=== PATIENT | female | born 1955 | race African-American/Black ===

== ENCOUNTER 2017-06-09 12:15 | Inpatient (IN) | payer MEDICARE, OTHER ==
[~2017-06-09] VITALS: Ht 152.4 cm; Wt 84.8 kg
[~2017-06-09 12:15] MED LIST: ADULT LOW DOSE81 MG PO; ADVAIR 500-501 EACH INH; ALBUTEROL NEB; ALBUTEROL2.5 MG/3 M INH; ALDACTONE50 MG PO; APAP W/CODEINE1 TA2 PO; AZITHROMYCIN 2250 MG PO; CALCIUM 600 +1 EAC5 PO; CARAFATE 1 GM TA1 G1 PO; CARTIA XT120 M1 PO; CHLOR-TABLET4 MG PO; CORAL CALCIUM1 EAC2 PO; CORAL CALCIUM1 EACH PO; COUMADIN 5 MG TA5 M1 PO; COUMADIN7.5 MG PO; DILTIAZEM 24HR120 M1 PO; DOXYCYCLINE 10100 M1 PO; DULERA 200 MCG/13 GM INH; ENOXAPARIN100 MG/1 M; ENOXAPARIN100 MG/1 M INJECTION; ENOXAPARIN30 MG/0.3 SQ; FLEXERIL PO; FLONASE 0.05%50 MCG INH; FLONASE INH; FORTEO SUBQ; FOSAMAX5 MG PO; FUROSEMIDE 20 M20 M1 PO; HOME MEDICATION INH; HOME MEDICATION PO; HYDROCODON-ACE1 EAC5 PO; HYDROCODON-ACE1 EAC7 PO; HYDROCODONE-AP1 EAC6 PO; IRON325 PO; JANTOVEN7.5 MG PO; K-DUR 20 MEQ T20 MEQ PO; K-DUR10 ME1 PO; KLOR-CON 10 ER10 MEQ PO; LANOXIN 0.120.125 M1 PO; LASIX 20 MG TAB20 MG PO; LOPRESSOR50 PO; MEDROL DOSPAK21 TA1 PO; MUCINEX600 MG PO; NEURONTIN 300300 M1 PO; NORCO 5-325 TA1 EACH PO; NORFLEX100 MG PO; OMEPRAZOLE20 MG PO; ORAPRED ODT15 MG PO; OSTERA TABLET1 EAC1 PO; PHENERGAN 25 MG25 M1 PO; PREDNISONE; PREDNISONE 1 MG1 M1 PO; PREDNISONE 10 M10 M1 PO; PREDNISONE 5 MG5 M1 PO; PROAIR HFA8.5 GM INH; PROTONIX40 M2 PO; PSEUDOEPHEDRINE30 MG PO; ROBAXIN500 MG PO; SALINE NASAL SP30 ML NASAL; SINGULAIR 10 MG10 M1 PO; SOTALOL80 MG PO; SUDAFED30 MG PO; SYMBICORT160 MCG/4. INH; TRACLEER PO; VENTOLIN HFA INH8 GM IH; VITAMIN B-12500 MCG PO; VITAMIN D3400 UNIT PO; VOLTAREN GEL 1100 G2 TOP; ZOFRAN ODT4 MG PO; ZYRTEC10 M2 PO; [UNRECOGNIZED DRUG - OTHER]
[2017-06-09 12:19] VITALS: BP 146/73
[2017-06-09 12:50] LABS: CREATININE 1.4 mg/dL (0.6-1.3); POTASSIUM 4.6 mmol/L (3.5-5.1)
[2017-06-09 12:51] LABS: HEMATOCRIT 45.9 % (37.0-47.0); MCH 26.4 pg (26.0-34.0); MCHC 30.6 g/dL (28.0-37.0); MCV 86.2 fL (80.0-100.0); MPV 8.8 fl. (7.2-11.1); NUCLEATED RBCS 0 /100WBC; PLATELET COUNT* 242 thou/uL (150-400); RBC 5.33 mil/uL (4.20-5.00); RDW-CV 16.2 % (10.5-14.5); WBC 6.1 thou/uL (4.0-11.0)
[2017-06-09 12:52] LABS: APTT 33.6 Seconds (25.0-31.3); PROTIME 18.9 Seconds (9.20-11.50)
[2017-06-09 13:01] LABS: ALBUMIN 3.3 g/dL (3.4-5.0); TOTAL BILIRUBIN 0.9 mg/dL (<0.1-1.0); TOTAL PROTEIN 6.2 g/dL (6.4-8.2); TROPONIN-I LEVEL 0.06 ng/mL (<0.06)
[2017-06-09 13:01] LABS: INFLUENZA B ANTIGEN None Detected (None Detect)
[2017-06-09 13:22] LABS: ABSOLUTE BASOPHILS 0.1 thou/uL (0.0-0.2); ABSOLUTE LYMPHOCYTES 0.4 thou/uL (0.8-5.3); ABSOLUTE MONOCYTES 0.8 thou/uL (0.0-1.2); ABSOLUTE NEUTROPHILS 4.8 thou/uL (1.6-8.1)
[2017-06-09 13:23] LABS: PLATELET ESTIMATE ADEQUATE; POLYCHROMASIA 1+
--- NOTE | 2017-06-09 16:39 | EKG ---
[place] [address] ELECTROCARDIOGRAM REPORT Name: YENNI WARNER Room: [place] [address] ADM IN .R.#: [id number] Admission: 06/09/17 Attend Phys: Zia Pemberton MD Discharge: Date of : 57 Report #: [id number] THIS REPORT FOR: //name// [facility] ED Test Date: 2017-06-09 Test Time: 13:21:33 Pat Name: YENNI WARNER Department: Room: [facility] Gender: F Lithographic Stripper: Tracy MCKEON : 1955 Requested By: Bobby Barajas Order Number: [id number] MD: Abraham Fiore Measurements Intervals [place] Rate: 57 P: 22 AL: 147 QRS: 76 QRSD: 72 T: 67 QT: 366 QTc: 357 Interpretive Statements Sinus rhythm Possible right atrial enlargement Repol abnrm, probable ischemia, anterior lds Compared to ECG 03/31/2017 17:22:48 Possible ischemia now present Sinus tachycardia no longer present Atrial premature complex(es) no longer present Incomplete right bundle-branch block no longer present Electronically Signed On 06-09-2017 16:39:12 SHADING PAINTER by Abraham Fiore [email or web address] <ELECTRONICALLY SIGNED> By: Abraham Fiore MD, FACC 06/09/17 1639 1321 1321 Abraham Fiore MD, FAC /EPI
[2017-06-09 17:16] VITALS: BP 139/52
[2017-06-09 17:45] VITALS: BP 108/35
--- NOTE | 2017-06-09 19:05 | NUR ---
PT ARRIVED TO ROOM 223 VIA CART.PT ON O2 @2L NC. PT UP IN ROOM WITH STEADY GAIT. ORIENTED TO ROOM,CALL LIGHT WITHIN REACH
[2017-06-09 21:00] VITALS: BP 129/66
[2017-06-10] VITALS: BP 124/59
[2017-06-10 01:08] LABS: ABSOLUTE LYMPHOCYTES 0.1 thou/uL (0.8-5.3); ABSOLUTE NEUTROPHILS 2.7 thou/uL (1.6-8.1); BASOPHILS 0.3 %; HEMATOCRIT 41.5 % (37.0-47.0); HEMOGLOBIN 12.8 gm/dL (12.0-15.0); LYMPHOCYTES 4.1 %; MCH 26.4 pg (26.0-34.0); MCHC 30.8 g/dL (28.0-37.0); MCV 85.6 fL (80.0-100.0); MONOCYTES 1.7 %; MPV 8.7 fl. (7.2-11.1); NUCLEATED RBCS 0 /100WBC; PLATELET COUNT* 193 thou/uL (150-400); POLYS 93.9 %; RBC 4.85 mil/uL (4.20-5.00); RDW-CV 16.6 % (10.5-14.5); WBC 2.9 thou/uL (4.0-11.0)
[2017-06-10 01:34] LABS: CALCIUM 8.5 mg/dL (8.5-10.1); CREATININE 1.7 mg/dL (0.6-1.3); POTASSIUM 4.6 mmol/L (3.5-5.1)
[2017-06-10 03:00] VITALS: BP 143/75
--- NOTE | 2017-06-10 06:19 | NUR ---
CONTACT PRECAUTIONS MAINTAINED, POSITIVE FOR INFLUENZA A. MUSIC ASSISTANT TRACING SINUS RHYTHM. PT HAS DENIED CHEST/ARM PAIN, NUMBNESS/TINGLING, AND SOA THROUGHOUT THE SHIFT. EKG COMPLETE AT 1910 AND 0, BOTH COMPARED TO ER EKG WITH NO CHANGE NOTED. 2L O2 IN PLACE, O2 SAT 94%. VSS. PT IS UP AD ESTEFANIA, STEADY GAIT. CALL LIGHT WITHIN REACH.
[2017-06-10 08:00] VITALS: BP 130/54
[2017-06-10 09:58] LABS: URINE BILIRUBIN NEGATIVE (Negative); URINE BLOOD 3+ (Negative); URINE CLARITY SL CLOUDY; URINE COLOR YELLOW; URINE GLUCOSE-RANDOM NEGATIVE (Negative); URINE KETONES NEGATIVE (Negative); URINE LEUKOCYTES-REFLEX NEGATIVE (Negative); URINE NITRITE-REFLEX NEGATIVE (Negative); URINE PROTEIN NEGATIVE (Negative); URINE SPECIFIC GRAVITY 1.025 (1.005-1.030); URINE UROBILINOGEN 0.2 E.U./dl (0.2-1.0)
[2017-06-10 10:03] LABS: SQUAMOUS 0-3 Few /LPF (0-3); URINE WBC-REFLEX 0-5 Rare /HPF (0-5)
[2017-06-10 10:04] LABS: AMORPHOUS URATES Few /LPF (None Seen); COARSE GRANULAR CASTS 0-3 Few /LPF (None Seen); FINE GRANULAR CASTS 0-3 Few /LPF (None Seen); HYALINE CASTS 0-3 Few /LPF (None Seen); MUCUS 4-6 Moderate strn/LPF (None Seen); URINE RBC 3-10 Few /HPF (0-2)
--- NOTE | 2017-06-10 10:35 | NUR ---
ASSUMED CARE OF PT AROUND 0800 THIS AM. PT ON DROPLET ISOLATION. REVIEWED HOME MEDICATIONS WITH PATIENT. PT ON HOME DOSE O2 AT 2L/NC. NS INFUSING PRESCRIBED. NO OTHER CONCERNS AT THIS TIME. CLWR. WCTM.
[2017-06-10 11:48] VITALS: BP 109/47
--- NOTE | 2017-06-10 14:34 | NUR ---
PT NOTED TO HAVE BRADYCARDIA IN THE 40'S ON CAR HOSTLER. REPORTED TO THIS NURSE THAT PULSE RATE LOW 30'S INTERMITTENTLY. STAT EKG OBTAINED WITH SINUS BRADYCARDIA. DR. FRYE NOTIFIED AND NEW ORDERS OBTAINED TO CHANGE METOPROLOL DOSE. NO OTHER CONCERNS AT THIS TIME. CLWR. WCTM.
[2017-06-10 15:00] LABS: INR 2.6; PROTIME 25.1 Seconds (9.20-11.50)
--- NOTE | 2017-06-10 15:48 | NUR ---
CM ASSESSMENT: Pt is A&O. Resides at home with her mom. Known to this CM from previous hospital stay. Admitted for Flu A. Independent with ADLs. Pt has a walker and cane at home that she can use if necessary. Hx of HH, but does not remember the name of the agency. No hx of SNF. Supportive family that is involved in POC. Goal is to return home once medically stable for dc. Pt does have home o2 through [facility].
[2017-06-10 15:53] VITALS: BP 115/58
--- NOTE | 2017-06-10 16:33 | EKG ---
[place] [address] ELECTROCARDIOGRAM REPORT Name: YENNI WARNER Room: [address] ADM IN M.R.#: [id number] Admission: 06/09/17 Attend Phys: Zia Pemberton MD Discharge: Date of : 57 Report #: [id number] THIS REPORT FOR: //name// [facility] Test Date: 2017-06-09 Test Time: 19:10:07 Pat Name: YENNI WARNER Department: Room: [address] Gender: F Road Contractor: REED LUCIA : 1955 Requested By: Bobby Barajas Order Number: [id number] Austyn MD: Abraham Fiore Measurements Intervals [place] Rate: 66 P: 5 GA: 122 QRS: 112 QRSD: 109 T: 107 QT: 395 QTc: 414 Interpretive Statements Sinus rhythm Right atrial enlargement Repol abnrm, severe global ischemia (LM/MVD) Compared to ECG 06/09/2017 13:21:33 Possible ischemia still present Electronically Signed On 06-10-2017 16:33:45 VISUAL AND STOCK ASSOCIATE by Abraham Fiore [email or web address] <ELECTRONICALLY SIGNED> By: Abraham Fiore MD, FACC 06/10/17 1633 09 09 Abraham Fiore MD, FAC /EPI
--- NOTE | 2017-06-10 16:37 | EKG ---
[place] [address] ELECTROCARDIOGRAM REPORT Name: YENNI WARNER Room: [address] ADM IN M.R.#: [id number] Admission: 06/09/17 Attend Phys: Zia Pemberton MD Discharge: Date of : 57 Report #: [id number] THIS REPORT FOR: //name// [facility] Test Date: 2017-06-10 Test Time: 04:18:36 Pat Name: YENNI WARNER Department: Room: [address] Gender: F Home Health Cna: VENU : 1955 Requested By: Bobby Barajas Order Number: [id number] Reading MD: Abraham Fiore Measurements Intervals [place] Rate: 65 P: 26 GA: 130 QRS: 61 QRSD: 110 T: -20 QT: 410 QTc: 427 Interpretive Statements Sinus rhythm RSR' in V1 or V2, right VCD or RVH Nonspecific T abnormalities, lateral leads Compared to ECG 06/09/2017 13:21:33 Right ventricular hypertrophy now present RSR' in V1 or V2 now present T-wave abnormality now present Possible ischemia no longer present Electronically Signed On 06-10-2017 16:37:00 GENERAL SUPERVISOR by Abraham Fiore [email or web address] <ELECTRONICALLY SIGNED> By: Abraham Fiore MD, FACC 06/10/17 1637 0418 0418 Abraham Fiore MD, FAC /EPI
--- NOTE | 2017-06-10 17:12 | NUR ---
PT SOMEWHAT PROGRESSING TOWARDS GOALS. VSS, ALTHOUGH TELE CHANGED FROM SR TO SB. METOPROLOL ON HOLD TONIGHT AND WCTM. RATE REMAINS IN THE 40'S. PT REMAINS ON ISOLATION FOR DROPLET PRECAUTIONS. NO OTHER CONCERNS AT THIS TIME. CLWR. WCTM.
[2017-06-10 20:00] VITALS: BP 138/39
[2017-06-11] VITALS: BP 125/44
[2017-06-11 04:00] VITALS: BP 114/48
--- NOTE | 2017-06-11 05:15 | NUR ---
ASSUMED CARE AT 1950, ASSESSMENT CHARTED. PATIENT ALERT/OREIENTED X4, SITTING UP IN CHAIR IN ROOM. DENIES PAIN OR NEEDS. REFUSING SCD'S. UP AD ESTEFANIA IN ROOM. MEDS PER JUL. REMAINS ON DROPLET ISOLATION. CALL LIGHT WITHIN REACH, ENOCURAGED TO CALL F0R NEEDS.
[2017-06-11 05:19] LABS: ABSOLUTE BASOPHILS 0.1 thou/uL (0.0-0.2); ABSOLUTE LYMPHOCYTES 0.2 thou/uL (0.8-5.3); ABSOLUTE MONOCYTES 0.1 thou/uL (0.0-1.2); ABSOLUTE NEUTROPHILS 6.5 thou/uL (1.6-8.1); BASOPHILS 0.9 %; HEMATOCRIT 38.9 % (37.0-47.0); LYMPHOCYTES 2.3 %; MCH 26.5 pg (26.0-34.0); MCHC 30.9 g/dL (28.0-37.0); MCV 85.6 fL (80.0-100.0); MONOCYTES 1.8 %; MPV 9.1 fl. (7.2-11.1); NUCLEATED RBCS 0 /100WBC; PLATELET COUNT* 174 thou/uL (150-400); RBC 4.54 mil/uL (4.20-5.00); RDW-CV 16.6 % (10.5-14.5); WBC 6.8 thou/uL (4.0-11.0)
[2017-06-11 05:22] LABS: INR 3.9; PROTIME 37.5 Seconds (9.20-11.50)
[2017-06-11 05:43] LABS: CALCIUM 8.8 mg/dL (8.5-10.1); CREATININE 1.4 mg/dL (0.6-1.3); MAGNESIUM 2.4 mg/dL (1.8-2.4); TOTAL BILIRUBIN 0.3 mg/dL (<0.1-1.0); TOTAL PROTEIN 5.4 g/dL (6.4-8.2)
[2017-06-11 09:30] VITALS: BP 132/58
--- NOTE | 2017-06-11 11:18 | EKG ---
[place] [address] ELECTROCARDIOGRAM REPORT Name: YENNI WARNER Room: [address] ADM IN M.R.#: [id number] Admission: 06/09/17 Attend Phys: Zia Pemberton MD Discharge: Date of : 57 Report #: [id number] THIS REPORT FOR: //name// [facility] Test Date: 2017-06-10 Test Time: 14:14:23 Pat Name: YENNI WARNER Department: Room: [address] Gender: F Ankle Patch Molder: Ashish Ballard : 1955 Requested By: Zia Pemberton Order Number: [id number] Reading MD: Hugo Miranda Measurements Intervals [place] Rate: 48 P: 31 MN: 145 QRS: 72 QRSD: 87 T: 110 QT: 468 QTc: 419 Interpretive Statements Sinus bradycardia Left atrial enlargement RSR' in V1 or V2, right VCD or RVH Nonspecific T abnormalities, lateral leads Compared to ECG 06/10/2017 04:18:36 Sinus rhythm no longer present T-wave abnormality still present Electronically Signed On 06-11-2017 11:18:25 PERMACULTURE DESIGNER by Hugo Miranda [email or web address] <ELECTRONICALLY SIGNED> By: Hugo Miranda MD, [facility] 06/11/17 1118 1414 1414 Hugo Miranda MD, FAC /EPI
--- NOTE | 2017-06-11 11:27 | EKG ---
[place] [address] ELECTROCARDIOGRAM REPORT Name: YENNI WARNER Room: [address] ADM IN M.R.#: [id number] Admission: 06/09/17 Attend Phys: Zia Pemberton MD Discharge: Date of : 57 Report #: [id number] THIS REPORT FOR: //name// [facility] Test Date: 2017-06-11 Test Time: 06:41:56 Pat Name: YENNI WARNER Department: Room: [address] Gender: F Tie Hacker: MELVIN : 1955 Requested By: Zia Pemberton Order Number: [id number] Reading MD: Hugo Miranda Measurements Intervals [place] Rate: 68 P: 81 [place]: 118 QRS: 78 QRSD: 94 T: 78 QT: 399 QTc: 425 Interpretive Statements Sinus rhythm Borderline short [place] interval Probable right ventricular hypertrophy Abnrm T, consider ischemia, anterolateral lds Compared to ECG 06/10/2017 04:18:36 rate increased Electronically Signed On 06-11-2017 11:27:44 RAG WASHER by Hugo Miranda [email or web address] <ELECTRONICALLY SIGNED> By: Hugo Miranda MD, [facility] 06/11/17 1127 0641 0641 Hugo Miranda MD, [facility] /EPI
[2017-06-11 12:00] VITALS: BP 142/60
[2017-06-11 16:00] VITALS: BP 137/65
--- NOTE | 2017-06-11 17:49 | NUR ---
ASSESSMENT AND VS OBTAINED, SEE CHARTING. DIRECTOR OF COMPLIANCE ON AND TRACING SR. PT REMAINS IN [place] ISOLATION FOR INFLUEZA A
[2017-06-11 20:00] VITALS: BP 123/53
[2017-06-12] VITALS: BP 123/52
[2017-06-12 04:00] VITALS: BP 123/46
--- NOTE | 2017-06-12 05:14 | NUR ---
ASSUMED PT CARE AT 1930, PT IS ON ISOLATION OF FLU, PT IS A&OX4, TRACING NSR WITH A 1DAVB ON THE MONITOR, ON 2L NC SATTING MID TO HIGH 90'S. PT C/O A SORE THROAT THIS SHIFT, PRN PAIN MEDICATIONS GIVEN PER JUL. PT ALSO GOT THROAT LOZENGES ORDERED. PT IS UP AD ESTEFANIA IN HER ROOM, STABLE ON HER FEET. BED IN LOW POSITION, CALL LIGHT IN REACH. HOURLY ROUNDING COMPLETED FOR PT SAFETY.
[2017-06-12 05:49] LABS: INR 3.7; PROTIME 35.7 Seconds (9.20-11.50)
[2017-06-12 09:17] VITALS: BP 147/62
--- NOTE | 2017-06-12 09:21 | NUR ---
P.T. ORDERS RECEIVED. CHART REVIEWED. NSG NOTES INDICATE PT UP AD ESTEFANIA IN ROOM WITH STEADY GAIT. SPOKE WITH NSG AND PT WHO INDICATE NO DIFFICULTIES OR CONCERNS WITH MOBILITY. PT ENCOURAGED TO CONTINUE TO BE UP INTERMITTENTLY IN ROOM. NO ACUTE P.T. INTERVENTION INDICATED AT THIS TIME.
--- NOTE | 2017-06-12 10:25 | NUR ---
ORDERS RECEIVED FOR OT TO EVAL AND TREAT, PATIENT UP AD ESTEFANIA IN ROOM WITH NO CONCERNS NOTED BY NURSING. SKILLED OT SERVICES NOT INDICATED AT THIS TIME, ENCOURAGE PATIENT TO CONTINUE TO BE UP IN ROOM ABLE. THANK YOU FOR THIS CONSULT.
[2017-06-12 12:00] VITALS: BP 138/56
[2017-06-12 14:02] LABS: HEMATOCRIT 39.1 % (37.0-47.0); HEMOGLOBIN 12.1 gm/dL (12.0-15.0); MCH 26.6 pg (26.0-34.0); MCHC 30.8 g/dL (28.0-37.0); MCV 86.3 fL (80.0-100.0); MPV 8.8 fl. (7.2-11.1); NUCLEATED RBCS 0 /100WBC; PLATELET COUNT* 212 thou/uL (150-400); RBC 4.54 mil/uL (4.20-5.00); RDW-CV 16.4 % (10.5-14.5)
[2017-06-12 14:24] LABS: ALBUMIN 3.2 g/dL (3.4-5.0); CALCIUM 8.6 mg/dL (8.5-10.1); CREATININE 1.6 mg/dL (0.6-1.3); POTASSIUM 4.8 mmol/L (3.5-5.1); TOTAL BILIRUBIN 0.4 mg/dL (<0.1-1.0); TOTAL PROTEIN 5.8 g/dL (6.4-8.2)
[2017-06-12 14:38] LABS: ABSOLUTE LYMPHOCYTES 0.2 thou/uL (0.8-5.3); ABSOLUTE MONOCYTES 0.2 thou/uL (0.0-1.2); ABSOLUTE NEUTROPHILS 11.5 thou/uL (1.6-8.1); PLATELET ESTIMATE ADEQUATE
--- NOTE | 2017-06-12 16:41 | NUR ---
ASSUMED CARES OF PT AT 0700. PT IN BED, BED IN LOW AND LOCKED POSITION, FALL PRECAUTIONS IN PLACE. CALL BUTTON AND PERSONAL ITEMS IN PT REACH. PT PLEASANT AND COOPERATIVE. ANTENNA MACHINE OPERATOR TRACING SB, DIMINISHED/WHEEZY IN BASES, RESPIRATIONS WNL. BM TODAY, SKIN INTACT, PERRLA, AFEBRILE. RIGHT FA 22 GAUGE IV PATENT TO FLUSH, NO S/S OF INFECTION. PT DENIES PAIN. PT INDEPENDENT, AT ESTEFANIA. PT ON DROPLET PRECAUTIONS FOR FLU. VSS ON 2L O2 NC. PT PROGRESSING TOWARDS GOAL, HOURLY ROUNDING CONTINUES. WILL CONTINUE TO MONITOR PT PROGRESS AND STATUS.
--- NOTE | 2017-06-12 19:42 | NUR ---
BEDSIDE REPORT TO COORDINATOR VOLUNTEER SERVICES FOR CONTINUED CARES. PT REMAINS STABLE, VSS ON 2L O2 NC. HOURLY ROUNDING COMPLETED. PT STATES SHE IS COMFORTABLE AT THIS TIME. CONTINUE DROPLET PRECAUTIONS FOR FLU A. PT PROGRESSING TOWARDS GOAL. PLANS TO D/C TOMORROW PER DR. FRYE.
[2017-06-12 20:00] VITALS: BP 140/61
[2017-06-13] VITALS: BP 141/54
[2017-06-13 04:00] VITALS: BP 126/58
--- NOTE | 2017-06-13 04:22 | NUR ---
ASSUMED PT CARE AT 1930, PT IS A&OX4, PT DENIES ANY PAIN OR NEEDS AT THSI TIME. PT IS TRACING NSR ON THE MONITOR, OCCASIONALLY WITH A 1DAVB, PT IS ON 2L NC SATTING MID TO HIGH 90'S. PT WEARS O2 AT HOME AT 2L NC AT [facility]. PT IS UP AD ESTEFANIA IN HER ROOM AND STABLE ON HER FEET. PT IS ON ISOLATION FOR FLU. BED IN LOW POSITION, CALL LIGHT IN REACH. HOURLY ROUNDING COMPLETED FOR PT SAFETY. PT REQUESTED THROAT LOZENGES FOR SORE THROAT.
[2017-06-13 06:00] LABS: INR 5.1
--- NOTE | 2017-06-13 07:30 | NUR ---
ASSUMED CARE OF PT ASSESSED AND DOCUMENTED. PT OMN CARDIAC MONITER TRACING A-FIB HR 52. PT IS A&O WITH NO C/O PAIN. SHE REMAINS ON ISOLATION FOR THE FLU. VSS STEPHANIE. .
[2017-06-13 08:00] VITALS: BP 129/49
[2017-06-13 12:15] VITALS: BP 130/64
--- NOTE | 2017-06-13 12:27 | NUR ---
Pt discharging to home today, declined HH. Family will provide dc transportation.
[2017-06-13] MEDS ORDERED: TAMIFLU30 MG PO (13:44)
[2017-06-13 13:46] VITALS: BP 130/64
--- NOTE | 2017-06-13 15:11 | NUR ---
PT D/C'D TO HOME. ALL CONSULTS OK WITH D/C. EDUCATION GIVEN REGARDING FOLLOW-UPS, MEDICATIONS. AND DRS ORDERS. SCRIPTS GIVEN. ALL BELONGINGS PACKED UP AND LEFT WITH PT ACCOMPANIED BY STAFF. CARDIAC MONITER AND IV D/C'D.
== END 2017-06-13 15:21 | disposition home or self-care (01) | DRG 682 ==
LOC: M.ERS 12:15 → M.2W 13:58 → M.TBA-ER 13:58 → M.2W 17:25
PROVIDERS: Family Medicine; ADMIT Internal Medicine
DX: N17.9 Acute kidney failure, unspecified (principal); J96.91 Respiratory failure, unspecified with hypoxia; R65.10 Systemic inflammatory response syndrome (SIRS) of non-infectious origin without acute organ dysfunction; I38 Endocarditis, valve unspecified; I50.32 Chronic diastolic (congestive) heart failure; J09.X2 Influenza due to identified novel influenza A virus with other respiratory manifestations; J45.909 Unspecified asthma, uncomplicated; I27.20 Pulmonary hypertension, unspecified; I48.91 Unspecified atrial fibrillation; K21.9 Gastro-esophageal reflux disease without esophagitis; N18.9 Chronic kidney disease, unspecified; D86.9 Sarcoidosis, unspecified; Z79.82 Long term (current) use of aspirin; Z90.49 Acquired absence of other specified parts of digestive tract; Z88.1 Allergy status to other antibiotic agents; Z88.0 Allergy status to penicillin; Z95.2 Presence of prosthetic heart valve; Z79.899 Other long term (current) drug therapy